=== PATIENT | female | born 1970 | race Caucasian/White ===

== ENCOUNTER 2025-03-10 11:30 | Inpatient (IN) | payer MEDICAID ==
[~2025-03-10] VITALS: Ht 154.9 cm; Wt 65.8 kg
[2025-03-10 14:10] LABS: GLUCOMETER DEV NAME(LOC) POC.BV; POC SARS-COV2 AG, FIA NEGATIVE (NEGATIVE)
[2025-03-10 22:17] VITALS: BP 131/74; PULSE 98; RESP 18; TEMP 97.6; O2SAT 98
[2025-03-10] MEDS: ZOLPIDEM TARTRATE 10 MG TABLET PO PRN (22:17)
[2025-03-11 08:28] VITALS: BP 148/82; PULSE 102; RESP 17; TEMP 97.9; O2SAT 99
[2025-03-11] MEDS ORDERED: LOPERAMIDE HCL 2 MG CAPSULE PO PRN (10:15)
[2025-03-11] MEDS ORDERED: IBUPROFEN 600 MG TABLET PO PRN (10:15)
[2025-03-11] MEDS ORDERED: BENZOCAINE/MENTHOL [CEPACOL] LOZENGE PO PRN (10:15)
[2025-03-11] MEDS ORDERED: DOCUSATE SODIUM 100 MG CAPSULE PO PRN (10:15)
[2025-03-11] MEDS ORDERED: OMEPRAZOLE 20 MG CAPSULE PO PRN (10:15)
[2025-03-11] MEDS ORDERED: MAG HYDROX/ALUMINUM HYD/SIMETH ES 30 ML SUSPENSION UDCUP PO PRN (10:15)
[2025-03-11] MEDS ORDERED: PETROLATUM,WHITE 28 GM JELLY TP PRN (10:15)
[2025-03-11] MEDS ORDERED: ONDANSETRON 4 MG TABLET PO PRN (10:15)
[2025-03-11] MEDS ORDERED: BACITRACIN 28 GM OINTMENT TP PRN (10:15)
[2025-03-11] MEDS ORDERED: ACETAMINOPHEN 325 MG TABLET PO PRN (10:15)
[2025-03-11 13:57] LABS: CHOL/HDL RATIO 3.4 (3.9-5.7); LDL CHOL (CALC.) 97.0 mg/dL (0-130)
[2025-03-11] MEDS: DOXYCYCLINE HYCLATE 100 MG TABLET PO SCH (16:15)
[2025-03-11 20:01] VITALS: BP 143/75; PULSE 86; RESP 18; TEMP 98.1; O2SAT 98
[2025-03-11] MEDS: ALBUTEROL SULFATE HFA 90 MCG/PUFF 8 GM INHALER IH PRN (21:03)
[2025-03-12 08:07] VITALS: BP 151/90; PULSE 100; RESP 17; TEMP 97.4; O2SAT 98
[2025-03-12] MEDS: ATORVASTATIN CALCIUM 40 MG TABLET PO SCH (08:19)
[2025-03-12] MEDS: ASPIRIN 81 MG CHEWABLE TABLET PO SCH (08:19)
[2025-03-12 14:03] VITALS: BP 138/91; PULSE 99; RESP 18; TEMP 98; O2SAT 98
[2025-03-12] MEDS: DIVALPROEX SODIUM 500 MG DR TABLET PO SCH (16:46)
[2025-03-12] MEDS: LITHIUM CARBONATE 300 MG CAPSULE PO SCH (16:46)
[2025-03-12 20:00] VITALS: BP 129/78; PULSE 97; RESP 18; TEMP 98.3; O2SAT 98
[2025-03-13 08:01] VITALS: BP 139/86; PULSE 99; RESP 16; TEMP 98.1; O2SAT 98
[2025-03-13 20:05] VITALS: BP 126/82; PULSE 99; RESP 17; TEMP 98.4; O2SAT 100
[2025-03-13] MEDS: MAGNESIUM HYDROXIDE SUSPENSION 30 ML UDCUP PO PRN (20:45)
[2025-03-14 08:14] VITALS: BP 124/76; PULSE 88; RESP 17; TEMP 97.7; O2SAT 97
[2025-03-14 20:17] VITALS: BP 127/82; PULSE 93; RESP 18; TEMP 97.7; O2SAT 97
[2025-03-15 08:35] VITALS: BP 137/76; PULSE 96; RESP 16; TEMP 98.1; O2SAT 97
[2025-03-15 08:53] LABS: VALPROIC ACID 5 mcg/mL (50-100)
[2025-03-15 20:21] VITALS: BP 121/82; PULSE 77; RESP 17; TEMP 97.9; O2SAT 99
[2025-03-16 00:45] VITALS: BP 137/93; PULSE 94; RESP 18; TEMP 97.9; O2SAT 99
[2025-03-16] MEDS: ZOLPIDEM TARTRATE 10 MG TABLET PO PRN (00:51)
[2025-03-16 08:32] VITALS: BP 146/81; PULSE 97; RESP 17; TEMP 97.2; O2SAT 98
[2025-03-16 20:20] VITALS: BP 125/78; PULSE 96; RESP 17; TEMP 97.5; O2SAT 99
[2025-03-17 08:07] VITALS: BP 121/78; PULSE 80; RESP 18; TEMP 97.6; O2SAT 95
[2025-03-17 20:07] VITALS: BP 125/72; PULSE 82; RESP 17; TEMP 97.8; O2SAT 98
[2025-03-18 08:26] VITALS: BP 130/98; PULSE 100; RESP 17; TEMP 98.6; O2SAT 100
[2025-03-18 10:25] VITALS: BP 134/84; PULSE 89
[2025-03-18 20:44] VITALS: BP 139/79; PULSE 100; RESP 18; TEMP 98.6; O2SAT 96
[2025-03-19 08:00] VITALS: BP 133/65; PULSE 100; RESP 16; TEMP 97.7; O2SAT 100
[2025-03-19 20:08] VITALS: BP 143/78; PULSE 91; RESP 19; TEMP 98.4; O2SAT 100
[2025-03-20 08:20] VITALS: BP 114/86; PULSE 71; RESP 18; TEMP 97.1; O2SAT 96
[2025-03-20 21:04] VITALS: BP 140/90; PULSE 81; RESP 18; TEMP 98.1; O2SAT 97
[2025-03-21 09:17] VITALS: BP 125/71; PULSE 105; RESP 18; TEMP 97.8; O2SAT 95
[2025-03-21 20:01] VITALS: BP 144/99; PULSE 95; RESP 18; TEMP 98.1; O2SAT 98
[2025-03-22 08:20] VITALS: BP 146/90; PULSE 80; RESP 17; TEMP 98.3; O2SAT 98
[2025-03-22 20:05] VITALS: BP 142/77; PULSE 77; RESP 18; TEMP 97.8; O2SAT 98
[2025-03-23 08:50] VITALS: BP 137/76; PULSE 92; RESP 18; TEMP 97; O2SAT 96
[2025-03-23] MEDS ORDERED: ARIP20TA PO (10:07)
[2025-03-23] MEDS ORDERED: ASPI81TA87 PO (11:05)
[2025-03-23] MEDS ORDERED: LISI-660 PO (11:06)
[2025-03-23] MEDS ORDERED: ATOR40TA28 PO (11:06)
== END 2025-03-23 15:25 | disposition home or self-care (01) | DRG 761 ==
LOC: B2S 18:43
PROVIDERS: ADMIT Psychiatry & Neurology Psychiatry; ATTEND Psychiatry & Neurology Psychiatry
DX: F25.9 Schizoaffective disorder, unspecified (principal); F10.90 Alcohol use, unspecified, uncomplicated; F41.9 Anxiety disorder, unspecified; I10 Essential (primary) hypertension; J44.9 Chronic obstructive pulmonary disease, unspecified; K21.9 Gastro-esophageal reflux disease without esophagitis; Y90.8 Blood alcohol level of 240 mg/100 ml or more; Z72.0 Tobacco use; Z20.822 Contact with and (suspected) exposure to COVID-19; Z79.899 Other long term (current) drug therapy; Z88.8 Allergy status to other drugs, medicaments and biological substances; L03.90 Cellulitis, unspecified; M19.90 Unspecified osteoarthritis, unspecified site
CPT/HCPCS: 80061; 80164; 80178; 83036; 84436; 84443; J3535

== ENCOUNTER 2025-03-10 14:33 | Emergency (ER) | payer MEDICAID, OTHER ==
[~2025-03-10] VITALS: Ht 154.9 cm; Wt 69.6 kg
[2025-03-10 14:45] VITALS: BP 115/88; PULSE 109; RESP 18; TEMP 97.9; O2SAT 100
[2025-03-10] MEDS: CEPHALEXIN MONOHYDRATE 500 MG CAPSULE PO ONE (15:26)
[2025-03-10 15:30] LABS: PLATELET COUNT (AUTO) 266 K/uL (150-450); RED BLOOD CELL COUNT(AUTO) 4.71 MIL/uL (4.00-5.20); RED CELL DISTRIBUTION WIDTH 14.7 % (11.5-14.5); WHITE BLOOD COUNT (AUTO) 7.6 K/uL (4.5-11.0)
[2025-03-10 15:38] LABS: CALCIUM, TOTAL 8.4 mg/dL (8.8-10.5); CREATININE 0.69 mg/dL (0.60-1.30); GLOMERULAR FILTR. RATE CALC > 60 mL/min (>60); GLUCOSE,RANDOM 105 mg/dL (70-110); SODIUM SERUM 139 mmol/L (136-145); UREA NITROGEN, BLOOD 14 mg/dL (7-18)
[2025-03-10] MEDS: DOXYCYCLINE HYCLATE 100 MG TABLET PO ONE (15:55)
[2025-03-10 16:32] LABS: TROPONIN I-HIGH SENSITIVITY 25 ng/L (<51)
== END 2025-03-10 18:20 | disposition short-term general hospital (02) ==
LOC: EMS 14:33
DX: F25.0 Schizoaffective disorder, bipolar type (principal); L73.9 Follicular disorder, unspecified; F41.9 Anxiety disorder, unspecified; I11.9 Hypertensive heart disease without heart failure; F32.A Depression, unspecified; Z79.899 Other long term (current) drug therapy
CPT/HCPCS: 99284; 86592; 80048; 84484; 85025; 36415; 93005; G0480